=== PATIENT | female | born 1990 | race Two or more races ===

== ENCOUNTER 2016-12-18 05:33 | Inpatient (IN) | payer OTHER, MEDICAID ==
--- NOTE | ~2016-12-18 | OR ---
PATIENT'S NAME: SHREYAS PASCUALE Darren [facility] AGE: 26 Y [address] ROOM: [place] [address] LOCATION: GOBS ADMIT DATE: 12/18/2016 OR/Procedure Report DISCHARGE DATE: FAMILY PHYSICIAN: PHYSICIAN, NO ATTENDING PHYSICIAN: KARI VALDEZ SURGEON: Sean Zimmerman MD [employer] B[employer] PAINTER: DATE OF PROCEDURE: 12/18/2016 PREOPERATIVE DIAGNOSES: 1. Intrauterine at 36 weeks and 3 days. 2. premature rupture of membranes. 3. Active labor. POSTOPERATIVE DIAGNOSES: 1. Intrauterine at 36 weeks and 3 days. 2. premature rupture of membranes. 3. Active labor. PROCEDURE PERFORMED: Spontaneous vaginal delivery over intact perineum. ANESTHESIA: None. FINDINGS: Viable male with score of 8 and 9 and weight of 7 pounds 0 ounces. Placenta intact with three-vessel cord. No cervical, vaginal, or perineal lacerations. ESTIMATED BLOOD LOSS: 250 mL. COMPLICATIONS: None. INDICATIONS: The patient is a 26-year-old, G2, P1-0-0-1 with intrauterine at 36 weeks and 3 days, who presented to Labor and Delivery for evaluation secondary to rupture of membranes at 0145 this morning. The patient was found to be ruptured. She was 350 and -2 and was nidhi every 2 to 3 minutes. The patient was rechecked 2 hours later, was still 350 and -2, but desired to continue walking to see if any change would be made; then 2 hours later she was 4, 50 and -2, and therefore Pitocin was started for augmentation. The patient did receive penicillin throughout her labor course given her GBS unknown status and prematurity. The patient progressed to complete and started maternal expulsive efforts. DESCRIPTION OF PROCEDURE: The patient was placed in the dorsal lithotomy position. She was prepped and draped in the usual sterile fashion. head was delivered with maternal expulsive effort in the CHRISTOPHER position. [facility]: 26 Y [address] ROOM: [place] [id number] LOCATION: [facility] ADMIT DATE: 12/18/2016 OR/Procedure Report DISCHARGE DATE: FAMILY PHYSICIAN: PHYSICIAN, NO ATTENDING PHYSICIAN: KARI VALDEZ nuchal cord x1 was noted and reduced. The anterior shoulder was then delivered followed by the remainder of the fetus. The was placed on the mother's abdomen. The cord was clamped and cut. The arterial cord gas was obtained. Cord blood was obtained. The placenta was then delivered spontaneously intact with three-vessel cord. No cervical, vaginal, or perineal lacerations were noted. Instruments, sponge, and needle counts were correct at the conclusion of the case. DISPOSITION: Mother stable. Baby in room with mother. MD MARIE HARRINGTON/libia /[id number] d: 12/18/167 t: 12/28/16 0847, OPERATIVE SUMMARY
[2016-12-18] MEDS ORDERED: PRENATAL 1+1)(P1 TAB PO (06:24)
[2016-12-18 06:55] LABS: BASOPHIL # 0.1 K/uL (0.0-0.2); BASOPHIL % 0.5 %; EOSINOPHIL # 0.1 K/uL (0.0-0.5); EOSINOPHIL % 1.1 %; HEMATOCRIT 36.2 % (33.0-46.0); HEMOGLOBIN 12.2 g/dL (11.0-15.0); IMMATURE GRANULOCYTE # 0.1 K/uL (0.0-0.3); IMMATURE GRANULOCYTE % 1.1 %; LYMPHOCYTE # 1.8 K/uL (0.8-4.0); LYMPHOCYTE % 18.9 %; MCH 29.4 pg (27.0-34.0); MCHC 33.7 gm/dL (32.0-36.5); MCV 87.2 fl (83.0-98.0); MONOCYTE # 0.7 K/uL (0.0-1.0); MONOCYTE % 7.1 %; MPV 10.2 fl (9.4-12.4); NEUTROPHIL # (ANC) 6.9 K/uL (1.8-7.8); NEUTROPHIL % 71.3 %; NRBC % 0 /100WBC (0-0.00); PLATELET COUNT 241 K/uL (150-450); RBC 4.15 M/uL (3.50-5.00); RDW-CV 13.1 % (11.9-14.6); WBC 9.6 K/uL (4.0-11.0)
[2016-12-18 17:29] LABS: PCO2 62 mmHg (35-45)
[2016-12-18 17:30] LABS: BICARBONATE 24.1 mmol/L (18.0-23.0); PO2 20 mmHg (80-90)
--- NOTE | 2016-12-19 05:52 | NUR ---
VSS. VOIDING W/OUT DIFFICULTY. LAST HAD PERCOCET AT 0044, MOTRIN AT 0254. FUNDUS FIRM, -1, SMALL FLOW.
[2016-12-19 07:02] LABS: BASOPHIL # 0.1 K/uL (0.0-0.2); BASOPHIL % 0.4 %; EOSINOPHIL # 0.1 K/uL (0.0-0.5); EOSINOPHIL % 0.9 %; HEMATOCRIT 38.8 % (33.0-46.0); HEMOGLOBIN 12.5 g/dL (11.0-15.0); IMMATURE GRANULOCYTE # 0.2 K/uL (0.0-0.3); IMMATURE GRANULOCYTE % 1.1 %; LYMPHOCYTE # 2.9 K/uL (0.8-4.0); LYMPHOCYTE % 21.2 %; MCH 29.1 pg (27.0-34.0); MCHC 32.2 gm/dL (32.0-36.5); MCV 90.2 fl (83.0-98.0); MONOCYTE # 1.2 K/uL (0.0-1.0); MONOCYTE % 8.5 %; NEUTROPHIL # (ANC) 9.3 K/uL (1.8-7.8); NEUTROPHIL % 67.9 %; NRBC % 0 /100WBC (0-0.00); PLATELET COUNT 215 K/uL (150-450); RDW-CV 13.2 % (11.9-14.6); WBC 13.7 K/uL (4.0-11.0)
--- NOTE | 2016-12-19 17:56 | NUR ---
Last VS: T:98.7 P:66 R: 14 BP: 106/62 Pain rating: . Last pain med: Motrin AT 1600 Medicated at: Effective: Yes Breasts: , Nipples: WNL Fundus:, , WNL Lochia: , SM Epis/Perineum: INTACT, , Voiding well: YES Significant event: .UP AD ROSS. S/O AT BS AND SUPPORTIVE. HAVE PATERNITY PAPERS.
--- NOTE | 2016-12-20 05:11 | NUR ---
VSS. VOIDING W/OUT DIFFICULTY, PASSING GAS. FUNDUS FIRM, -1, SMALL FLOW. LAST HAD MOTRIN AT 0349.
[2016-12-20] MEDS ORDERED: SURFAK240 MG PO (13:51)
[2016-12-20] MEDS ORDERED: MOTRIN800 MG PO (13:51)
[2016-12-20] MEDS ORDERED: NORCO 5-325 TA1 EACH (13:53)
== END 2016-12-20 16:30 | disposition disaster alternative care site (69) | DRG 775 ==
LOC: GOBS 05:33
PROVIDERS: Obstetrics & Gynecology; ADMIT Obstetrics & Gynecology
PROC: 10E0XZZ Delivery of Products of Conception, External Approach (ICD-10-PCS; principal; 2016-12-18)
DX: O42.913 Preterm premature rupture of membranes, unspecified as to length of time between rupture and onset of labor, third trimester (principal); O69.81X0 Labor and delivery complicated by cord around neck, without compression, not applicable or unspecified; Z3A.36 36 weeks gestation of pregnancy; Z37.0 Single live birth
CPT/HCPCS: J2540; J2590; J3010; J7120